=== PATIENT | male | born 2000 | race Caucasian/White ===

== ENCOUNTER 2021-10-02 23:44 | Emergency (ER) | payer BC ==
[2021-10-03] MEDS ORDERED: predniSONE 20 MG Tab PO STA (00:14)
== END 2021-10-03 00:33 | disposition home or self-care (01) ==
LOC: MW.ED 23:44
DX: J40 Bronchitis, not specified as acute or chronic (principal); R09.1 Pleurisy; Z88.1 Allergy status to other antibiotic agents; Z79.899 Other long term (current) drug therapy
CPT/HCPCS: 93005; 99284; A9270